=== PATIENT | female | born 1960 | race Caucasian/White ===

== ENCOUNTER 2017-06-24 09:42 | Emergency (ER) | payer OTHER ==
[~2017-06-24] VITALS: Ht 165.1 cm; Wt 79.4 kg
[2017-06-24 09:45] VITALS: Ht 165.1 cm; Wt 79.4 kg
[2017-06-24] MEDS ORDERED: SOD CHLORIDE 0.9% 1,000 ML IV STA (10:45)
[2017-06-24] MEDS ORDERED: morphine 4 MG/ML VIAL IV STA (10:45)
[2017-06-24] MEDS ORDERED: ONDANSETRON 4 MG INJ IV STA ×2 (10:45→13:15)
[2017-06-24] MEDS ORDERED: IOHEXOL 300MG/ML 150 ML BTL ONE (12:40)
[2017-06-24] MEDS ORDERED: SOD CHLORIDE 0.9% 100 ML ONE (12:40)
--- NOTE | 2017-06-24 13:03 | RADRPT ---
PROCEDURE: CT Abdomen and pelvis with contrast. CLINICAL INDICATION: Mid abdominal pain. TECHNIQUE: CT scan of the abdomen and pelvis with contrast was performed on a multidetector high-r esolution CT scan. The patient was scanned following the uncomplicated intravenous administration o f 90 ml Omnipaque-300. Coronal and sagittal reformatted images were obtained from the axial source images. Standard CT of the abdomen pelvis with contrast protocols were performed. The total exam CTDI equals 12.88 mGy and the total exam DLP equals 746.42 mGy-cm. One or more of the following dose reduction techniques were used: - Automated exposure control. - Adjustment of the mA and/or kV according to patient size. Use of iterative reconstruction technique. COMPARISON: None. FINDINGS: There is diffuse colonic diverticulosis most extensive involving the distal descending and especiall y sigmoid colon. No CT evidence of diverticulitis. The colon is otherwise unremarkable. The appendix is unremarkable. The stomach and small bowel are unremarkable. Trace fluid in the cul-de-sac. No other abdominal free fluid. Negative for intra-abdominal abscess, free air or lymphadenopathy. There is a retroverted retroflexed uterus with a small calcified fundal leiomyoma. The uterus is oth erwise unremarkable. No adnexal masses demonstrated. The kidneys are normal in size without calcified renal calculi, hydronephrosis or intra renal masses bilaterally. The urinary bladder is partially contracted but otherwise unremarkable. The gallbladder is distended but otherwise unremarkable. No evidence of biliary ductal dilation. The re is mild hepatic fatty infiltration but no evidence of focal hepatic lesions. The spleen pancreas and adrenal glands are unremarkable. Abdominal pelvic wall unremarkable. Mild atherosclerosis of the aorta but no aneurysm. Mild scarring at the lung bases which are otherwise unremarkable. There are degenerative changes lower thoracic a nd lumbar spine but no acute osseous findings or osteoblastic/osteolytic lesions. IMPRESSION: 1. Colonic diverticulosis most extensive involving the distal descending and especially sigmoid col on without CT evidence of diverticulitis. 2. Unremarkable appendix. 3. Trace fluid in the cul-de-sac. No other abdominal abscess or free air or lymphadenopathy. 4. No evidence of calcified urinary calculi or obstructive uropathy. 5. Distended otherwise unremarkable gallbladder. No biliary ductal dilation. RPTAT:AAJJ Joe Cottrell Physician Date Time Electronically viewed and signed by Joe Cottrell Physician on 06/24/2017 13:02 /
[2017-06-24] MEDS ORDERED: KETOROLAC 30 MG INJ IV STA (13:14)
--- NOTE | 2017-06-24 13:18 | ERD ---
ER Documentation Chief Complaint Chief Complaint ABD PAIN WITH VOMITING/DIARRHEA X 2 DAYS HPI This is a very pleasant 56-year-old female previously healthy with no past surgical history that presents to the emergency department complaining of 2 days of nonbloody nonbilious emesis and loose watery stools. The patient indicates she is also been experiencing pain in the abdomen most prominent in the left lower quadrant. She states she has never had any similar symptoms in the past. The pain is described as a sharp shooting pain nonradiating, 6 out of 10 in intensity. She indicates that she has had roughly 3 episodes of loose watery stools each day for 48 hours. She indicates she has had a decrease in appetite and has been unable to tolerate oral intake due to the persistent nonbloody nonbilious emesis. She states she has had roughly 6 episodes of nonbloody nonbilious emesis yesterday with 2 this morning that prompted her to come to the emergency department to be further evaluated. She denies any recent travel or prolonged immobilization. She has no recent hospitalizations or antibiotic use. She has no fevers no shaking or chills. She denies any chest pain or pressure that radiates to the neck arm back or jaw. No Frequency urgency or dysuria ROS All systems reviewed and are negative except as per history of present illness. Medications Home Meds Active Scripts Ibuprofen* (Ibuprofen*) 800 Mg Tablet, 800 MG PO Q8, #30 TAB Prov:IZABELA ARRINGTON 06/24/17 Ondansetron (Ondansetron Odt) 4 Mg Tab.rapdis, 4 MG PO Q6H Y for NAUSEA AND/OR VOMITING, #20 TAB Prov:IZABELA ARRINGTON 06/24/17 Discontinued Reported Medications [None] No Conflict Check 08/01/14 Allergies Allergies: Coded Allergies: Penicillins (Verified Allergy, Intermediate, 06/24/17) RASH PMhx/Soc History of Surgery: No Anesthesia Reaction: No Hx Neurological Disorder: No ( ) Hx Respiratory Disorders: No Hx Cardiac Disorders: Yes (HTN) Hx Psychiatric Problems: No Hx Miscellaneous Medical Probl: No Hx Alcohol Use: No Hx Substance Use: No Hx Tobacco Use: No Smoking Status: Never smoker Physical Exam Vitals Vital Signs Date Time Temp Pulse Resp B/P Pulse Ox O2 Delivery O2 Flow Rate FiO2 06/24/17 13:30 97.7 64 12 147/97 100 Room Air 06/24/17 11:34 97.7 59 18 142/94 100 Room Air 06/24/17 09:45 98.2 62 18 149/90 97 Physical Exam Constitutional:Well-developed. Well-nourished. HEENT:Normocephalic. Atraumatic.Pupils were equal round reactive to light. Dry mucous membranes.No tonsillar exudates. Neck: No nuchal rigidity. No lymphadenopathy. No posterior cervical spine tenderness or step-offs. Respiratory: Not using accessory muscles of respiration.Lungs were clear to auscultation bilaterally. No rhonchi. No rales. No wheezing. Cardiovascular: Regular rate regular rhythm.No murmurs. No rubs were appreciated.S1, S2 normal. Distal pulses are palpable 2+ bilaterally. GI: Abdomen was soft. Left lower quadrant tenderness. Non Distended. No pulsatile abdominal masses or bruits. No rebound. No guarding. Bowel sounds were present and normal. Muscle skeletal: Full range of motion of both the upper and lower extremities bilaterally.Normal muscle tone.No assymetrical calf tenderness or swelling. Skin: No petechia, no purpura. No lesions on the palms or the soles of the feet. No maculopapular rash. NEURO: Patient was alert, awake, orientated x3.No facial droop. Gait observed and normal with no ataxia.Speech had regular rate and rhythm. No focal neurological deficits. Result Diagram: 06/24/17 1103 06/24/17 1103 Results 24 hrs Laboratory Tests Test 06/24/17 11:03 White Blood Count 4.510^3/ul Red Blood Count 4.7310^6/ul Hemoglobin 13.2g/dl Hematocrit 40.5% Mean Corpuscular Volume 85.6fl Mean Corpuscular Hemoglobin 27.9pg Mean Corpuscular Hemoglobin Concent 32.6g/dl Red Cell Distribution Width 12.6% Platelet Count 99936^3/UL Mean Platelet Volume 10.3fl Neutrophils % 55.0% Lymphocytes % 31.2% Monocytes % 11.9% Eosinophils % 1.1% Basophils % 0.4% Nucleated Red Blood Cells % 0.0/100WBC Neutrophils # 2.410^3/ul Lymphocytes # 1.410^3/ul Monocytes # 0.510^3/ul Eosinophils # 0.110^3/ul Basophils # 0.010^3/ul Nucleated Red Blood Cells # 0.010^3/ul Prothrombin Time 12.9Sec Prothrombin Time Ratio 1.0 INR International Normalized Ratio 0.97 Activated Partial Thromboplast Time 27.3Sec Sodium Level 140mmol/L Potassium Level 3.1mmol/L Chloride Level 100mmol/L Carbon Dioxide Level 30mmol/L Anion Gap 13 Blood Urea Nitrogen 9mg/dl Creatinine 0.75mg/dl Glucose Level 100mg/dl Calcium Level 8.5mg/dl Total Bilirubin 0.4mg/dl Direct Bilirubin 0.00mg/dl Indirect Bilirubin 0.4mg/dl Aspartate Amino Transf (AST/SGOT) 30IU/L Alanine Aminotransferase (ALT/SGPT) 34IU/L Alkaline Phosphatase 88IU/L Troponin I < 0.012ng/ml Total Protein 7.3g/dl Albumin 4.0g/dl Globulin 3.30g/dl Albumin/Globulin Ratio 1.21 Amylase Level 79U/L Lipase 70U/L Current Medications Medications (Trade) Dose Ordered Sig/Riky Route PRN Reason Start Time Stop Time Status Last Admin Dose Admin Sodium Chloride (NS) 1,000 ml @ 1,000 mls/hr Q1H STAT IV 06/24/17 10:45 06/24/17 11:44 DC 06/24/17 11:01 Morphine Sulfate (morphine) 4 mg ONCE STAT IV 06/24/17 10:45 06/24/17 10:47 DC 06/24/17 11:01 Ondansetron HCl (Zofran Inj) 4 mg ONCE STAT IV 06/24/17 10:45 06/24/17 10:47 DC 06/24/17 11:01 IV Flush 10 ml 10 ml STK-MED ONCE .ROUTE 06/24/17 12:40 06/24/17 12:41 DC 06/24/17 12:45 Sodium Chloride (NS) 100 ml @ ud STK-MED ONCE .ROUTE 06/24/17 12:40 06/24/17 12:41 DC 06/24/17 12:45 Iohexol (Omnipaque 300mg/ ml) 150 ml STK-MED ONCE .ROUTE 06/24/17 12:40 06/24/17 12:41 DC 06/24/17 12:45 Ketorolac Tromethamine (Toradol) 30 mg ONCE STAT IV 06/24/17 13:14 06/24/17 13:15 DC 06/24/17 14:01 Famotidine (Pepcid Iv) 20 mg ONCE ONCE IV 06/24/17 13:30 06/24/17 13:31 DC 06/24/17 14:01 Ondansetron HCl (Zofran Inj) 4 mg ONCE STAT IV 06/24/17 13:15 06/24/17 13:19 DC 06/24/17 14:01 Procedures/MDM This patient presented to the emergency department with abdominal pain and was seen and evaluated by myself. My differential diagnosis included but was not limited to abdominal aortic aneurysm, appendicitis, pancreatitis, perforated peptic ulcer, perforated viscus, Boerhaaves syndrome or visceral pain such as diverticulitis, DKA, esophagitis, hepatitis or bowel obstruction. The patient was placed on a electronic device monitor, continuous pulse oximetry, and IV access was established by nursing staff. Intravenous morphine Zofran and Toradol and still was complaining of abdominal discomfort therefore I felt was necessary to obtain a CT scan of the patient's abdomen. CT scan reviewed by myself and the radiologist indicated the followin. Colonic diverticulosis most extensive involving the distal descending and especially sigmoid colon without CT evidence of diverticulitis. 2. Unremarkable appendix. 3. Trace fluid in the cul-de-sac. No other abdominal abscess or free air or lymphadenopathy. 4. No evidence of calcified urinary calculi or obstructive uropathy. 5. Distended otherwise unremarkable gallbladder. No biliary ductal dilation. I also obtained a 12-lead EKG tracing to rule out atypical myocardial infarction 12 Lead EKG tracing ordered and reviewed by myself showed: Normal sinus rhythm of 80 bpm and no arrhythmia. AL interval normal. QRS duration normal. No ST segment elevation No ST segment depression. No changes consistent with acute ischemia. The patient's pain is completely resolved and I did feel she would be safely discharged home. I felt her symptoms were an exacerbation of diverticulosis and also likely a viral etiology that was causing the vomiting and diarrhea. The patient was discharged home in fair condition. They were instructed to return to the emergency department at any time if there was any worsening of their condition. The patient stated they would follow up with their PCP in the next 24-48 hours to initiate a suitable medication regimen under the care of their PCP as well as to allow their PCP to monitor any drug reactions. The patient was discharged home with prescriptions after they gave informed consent to the new medication. They were also fully informed by myself on the adverse effects and adverse drug interactions in order to provide adequate safeguards to prevent possible adverse reactions to medications. Departure Diagnosis: Primary Impression: Diverticulosis Diverticulosis site: unspecified location Diverticulosis bleeding: diverticulosis without bleeding Qualified Code: K57.90 - Diverticulosis of intestine without bleeding, unspecified intestinal tract location Condition: IZABELA Gregory Jun 24, 2017 13:18
[2017-06-24 13:30] VITALS: BP 147/97; PULSE 64; RESP 12; TEMP 97.7
[2017-06-24] MEDS ORDERED: FAMOTIDINE 20 MG INJ IV ONE (13:30)
[2017-06-24] MEDS ORDERED: IBUP800T25 PO (13:33)
[2017-06-24] MEDS ORDERED: ONDA4TAB14 PO (13:33)
[2017-06-24] MEDS ORDERED: DIPHENOXYLATE/ATROPINE TAB PO ONE (14:30)
== END 2017-06-24 14:20 | disposition home or self-care (01) ==
LOC: E/R 09:42
DX: K57.90 Diverticulosis of intestine, part unspecified, without perforation or abscess without bleeding (principal); I10 Essential (primary) hypertension
CPT/HCPCS: 74177; 80053; 82150; 83690; 84484; 85025; 85610; 85730; 93005; 96374; 96375; 96376; J1885; J2270; J2405; J7030; Q9967; Z7502; Z7610

== ENCOUNTER 2019-01-17 06:09 | Day surgery (SDC) | payer OTHER ==
[~2019-01-17] VITALS: Ht 154.9 cm; Wt 78.9 kg
[~2019-01-17 06:09] MED LIST: IBUP-1544 PO; ONDA4TAB14 PO
[2019-01-17] MEDS ORDERED: GLIPIZIDE (07:15)
[2019-01-17] MEDS ORDERED: LISINOPRIL (07:15)
[2019-01-17 07:16] VITALS: Ht 154.9 cm; Wt 78.9 kg
[2019-01-17 07:21] VITALS: BP 151/85; PULSE 66; RESP 17
[2019-01-17] MEDS ORDERED: FENTAnyl 50 MCG/ML VIAL ONE (08:11)
[2019-01-17] MEDS ORDERED: MIDAZOLAM 1 MG/ML 2 ML INJ ONE ×3 (08:11)
[2019-01-17 08:44] VITALS: BP 127/78; PULSE 65; RESP 14
== END 2019-01-17 10:51 | disposition home or self-care (01) ==
LOC: GIL 06:09
PROVIDERS: ATTEND Internal Medicine Gastroenterology
DX: Z12.11 Encounter for screening for malignant neoplasm of colon (principal); K57.30 Diverticulosis of large intestine without perforation or abscess without bleeding; Z86.010 Personal history of colon polyps
CPT/HCPCS: 45378; J2250; J3010